=== PATIENT | female | born 1945 | race African-American/Black ===

== ENCOUNTER 2016-11-22 19:02 | Emergency (ER) | payer OTHER ==
[~2016-11-22] VITALS: Ht 170.2 cm; Wt 81.6 kg
[2016-11-22] MEDS ORDERED: LOSA50TA3 PO (19:17)
--- NOTE | 2016-11-22 19:33 | NUR ---
Pt ambulated to room with steady gait and changed into gown. Pt c/o severe pressure headache to front of head and behind the eyes. She also c/o fever and generalized weakness. In addition pt sts she drank a herbal tea to help cleanse her system and since has been having liquid, watery diarrhea. Sts she took it before and didnt have problems like this. Dr. Saenz at bedside for MSE.
[2016-11-22] MEDS ORDERED: IV NORMAL SALINE 500 ML BAG IV ONE (19:45)
--- NOTE | 2016-11-22 19:59 | NUR ---
IV started, labs drawn and sent. Fluid bolus infusing freely to gravity. EKG obtained and given to Dr. Saenz. Pt declines need for medication for headache at this time.
[2016-11-22 20:02] LABS: *BILIRUBIN,URIN NEGATIVE (NEGATIVE); *BLOOD, URINE 1+ (NEGATIVE); *COLOR,URINE YELLOW (YELLOW); *KETONES,URINE NEGATIVE (NEGATIVE); *PROTEIN,URINE NEGATIVE (NEGATIVE); *UROBILINOGEN,URINE 0.2 E.U./dl (NORMAL); LEUKOCYTE ESTERASE ,URINE 2+ (NEGATIVE); NITRITE, URINE NEGATIVE (NEGATIVE); UGLUCOSE NEGATIVE (NEGATIVE)
[2016-11-22 20:05] LABS: BASOPHILS # (AUTO) 0.1 K/uL (0.0-8.0); BASOPHILS % (AUTO) 2.5 % (0.0-2.0); EOSINOPHILS % (AUTO) 0.6 % (0.0-7.0); HEMATOCRIT 40.6 % (37-47); HEMOGLOBIN 13.5 G/DL (12.0-16.0); LYMPHOCYTES # (AUTO) 1.1 K/UL (0.8-4.8); LYMPHOCYTES % (AUTO) 20.7 % (20.5-51.5); MEAN CORPUSCULAR HEMOGLOBIN 29.3 UUG (27.0-31.0); MEAN CORPUSCULAR HGB CONC 33 g/dL (32.0-37.0); MEAN CORPUSCULAR VOLUME 88.2 FL (81.0-99.0); MONOCYTES # (AUTO) 0.6 K/UL (0.1-1.30); MONOCYTES % (AUTO) 10.1 % (0.0-11.0); NEUTROPHILS # (AUTO) 3.8 K/UL (1.8-8.9); NEUTROPHILS % (AUTO) 66.1 % (38.5-71.5); PLATELET COUNT (AUTO) 189 K/UL (150-450); RED BLOOD CELL COUNT(AUTO) 4.61 MIL/UL (4.2-5.4); WHITE BLOOD COUNT (AUTO) 5.6 K/UL (4.0-11.2)
[2016-11-22 20:12] LABS: *CLARITY,URINE SLIGHTLY HAZY (CLEAR)
[2016-11-22 20:14] LABS: BACTERIA,URINE FEW /HPF (NONE SEEN); BILIRUBIN,DIRECT 0.1 mg/dL (0.0-0.2); BILIRUBIN,TOTAL 0.3 mg/dL (0.2-1.0); CREATININE 1.2 mg/dL (0.6-1.3); MUCUS,URINE MODERATE /LPF (0-FEW); SQUAMOUS EPITHELIAL CELL,UR MODERATE /HPF (NONE SEEN); TOTAL PROTEIN, SERUM 8.3 g/dL (6.4-8.2)
[2016-11-22 20:21] LABS: POTASSIUM 2.7 mmol/L (3.5-5.1)
--- NOTE | 2016-11-22 20:43 | NUR ---
Pt to and from CT via gurney, resting in position of comfort for self.
[2016-11-22] MEDS ORDERED: CEFTRIAXONE 1 G in IV DEXTROSE 5% 50 ML IV ONE (20:45)
[2016-11-22] MEDS ORDERED: POTASSIUM CHLORIDE 20 MEQ TAB.PRT.SR PO ONE (20:45)
[2016-11-22] MEDS ORDERED: CEFTRIAXONE 1 G VIAL ONE (20:53)
--- NOTE | 2016-11-22 20:53 | NUR ---
Pt placed on monitor for potassium infusion. Pt NSR.
[2016-11-22] MEDS ORDERED: POTASSIUM CHLORIDE 100 ML ONE (20:54)
[2016-11-22] MEDS ORDERED: POTASSIUM CHLORIDE 20 MEQ TAB.PRT.SR ONE (21:22)
[2016-11-22] MEDS: POTASSIUM CHLORIDE 50 ML IV SCH ×2 (21:24→22:36)
--- NOTE | 2016-11-22 22:07 | NUR ---
Pt resting in position of comfort for self. No complaints at this time. Pt sts the burning from potassium infusion has stopped since rate of infusion was slowed down. Pt remains NSR on monitor
--- NOTE | 2016-11-23 00:05 | NUR ---
Potassium infusion completed. Pt tolerated will. Pt sts she is feeling better. Pt stable for discharge per MD. IV dc'd, catheter intact, drsg applied. No problems noted to site. Pt given ACI. Pt verbalized understanding of dc instructions. Pt ambulated out of er with steady gait to wait for daughter to pick her up.
[2016-11-23 01:01] VITALS: BP 134/81
== END 2016-11-23 00:05 | disposition home or self-care (01) ==
LOC: ER 19:02
DX: N39.0 Urinary tract infection, site not specified (principal); E87.6 Hypokalemia; E86.0 Dehydration; I10 Essential (primary) hypertension
CPT/HCPCS: 36415; 70450; 71010; 80048; 80076; 81001; 83735; 85025; 93005; 96361; 96365; 96366; 96367; 99285; A4663; J0696; J3480; J7030; J7060